=== PATIENT | female | born 1975 | race Two or more races ===

== ENCOUNTER 2019-11-08 00:42 | Emergency (ER) | payer SELFPAY ==
[2019-11-08 00:47] VITALS: BP 118/68; PULSE 77; RESP 22; TEMP 36.8; O2SAT 100
[2019-11-08 01:26] LABS: Basophils Percent Auto 0.3 % (0.2-1.2); Eosinophils Absolute Auto 0.1 K/mm3 (0-0.3); Eosinophils Percent Auto 0.6 % (0-4.4); Hematocrit 25.9 % (37.0-47.0); Hemoglobin 8.4 g/dL (12.0-15.0); Immature Granulocyte Absolute 0.03 K/mm3 (0.00-0.031); Immature Granulocyte Percent A 0.4 % (0-0.5); Lymphocytes Absolute Auto 2.65 K/mm3 (0.9-3.2); Lymphocytes Percent Auto 33.8 % (18.3-44.2); Mean Corpuscular HGB Conc 32.4 g/dl (32-36); Mean Corpuscular Hemoglobin 26.6 pg (26-34); Mean Platelet Volume 10.6 fl (7.4-10.4); Monocytes Absolute Auto 0.7 K/mm3 (0.1-0.6); Monocytes Percent Auto 8.4 % (2.6-8.5); Neutrophils Absolute Auto 4.4 K/mm3 (1.3-6.7); Neutrophils Percent Auto 56.5 % (45.5-73.1); Platelet Count Result 290 k/mm3 (150-375); Red Blood Count 3.16 M/mm3 (4.2-5.4); Red Cell Distribution Width 15.8 % (11.5-14.5); White Blood Count 7.8 K/mm3 (4.5-10.0)
[2019-11-08 01:30] LABS: Prothrombin Time 13.3 Seconds (11.1-14.7)
[2019-11-08 01:35] LABS: Alanine Aminotransferase 18 U/L (4-35); Albumin Level 3.9 g/dL (3.5-5.1); Alkaline Phosphatase 80 U/L (38-126); Aspartate Amino Transferase 22 U/L (14-36); Bilirubin,Total 0.1 mg/dL (0.2-1.3); Blood Urea Nitrogen 15 mg/dL (7-17); Calcium 8.4 mg/dL (8.4-10.2); Carbon Dioxide 22 mmol/L (22-30); Chloride 105 mmol/L (98-107); Estimated Glomerular Filt Rate > 60; Glucose 104 mg/dL (65-105); Potassium 3.5 mmol/L (3.4-5.0); Sodium 135 mmol/L (137-145)
--- NOTE | 2019-11-08 01:35 | ED.FEMALEGU ---
HPI - Female Genitourinary General Chief complaint: Vaginal Bleeding Stated complaint: vaginal bleeding Time Seen by Provider: 11/08/19 00:54 History of Present Illness HPI Narrative: Patient presents to the ED with her daughter for daughter's complaints and then decides to be seen herself. She is [place]. And we used the peer financial counselor for communication. She reports 2 weeks of vaginal bleeding. She has not had this before. She is not on control. She is G2, P2 Ab0. She has no pain with this. She also has a headache which she says is severe that she has had for 2 days. MD elicited complaint: vaginal bleeding Onset (ago): week(s) Location of symptoms: vaginal Severity: moderate Consistency: constant Related Data Allergies Allergy/AdvReac Type Severity Reaction Status Date / Time No Known Allergies Allergy Verified 11/08/19 02:14 Review of Systems Review of Systems: Narrative: CONSTITUTIONAL: Denies fever, chills, or sweats. EYES: Denies visual changes, redness, or discharge. ENT: Denies rhinorrhea, congestion, sore throat, or otalgia. CARDIOVASCULAR: Denies chest pain, palpitations, or edema. RESPIRATORY: Denies cough or dyspnea. GASTROINTESTINAL: Denies abdominal pain, nausea, vomiting, or diarrhea. GENITOURINARY: Denies dysuria or hematuria. She does have vaginal bleeding for 2 weeks. SKIN: Denies rash or itching. MUSCULOSKELETAL: Denies back pain, joint pain, or myalgia. NEUROLOGIC: She has headache, but not numbness, or weakness. . PMFSH Past Medical History Medical History Anemia Menometrorrhagia Vaginal bleeding Surgical History Surgical History (Updated 11/08/19 @ 01:38 by Poly Curtis MD) No pertinent past surgical history Social History Social History (Updated 11/08/19 @ 01:38 by Poly Curtis MD) Smoking status: Never smoker Alcohol intake: never Substance use: never Gender identity (if verbalized by the patient): Female Exam Narrative: Exam Narrative: GENERAL: Well-appearing, well-nourished, and in no acute distress. Short stature. HEAD: Normocephalic, atraumatic. EYES: PERRLA and EOMI. ENT: Nares clear, no rhinorrhea or epistaxis. Mucous membranes moist. NECK: Supple. CHEST: Clear to auscultation. No respiratory distress. HEART: Regular rate and rhythm. No murmur heard. Normal peripheral pulses. ABDOMEN: Soft, nontender, nondistended, normal active bowel sounds. EXTREMITIES: Normal range of motion. No edema. SKIN: Warm, dry, no rash. NEURO: No focal deficits. Alert and oriented x3. PSYCH: Normal mood and affect. : Very slow flow vaginal bleeding no clots. No masses. No tenderness. Const: General: no acute distress and alert Course Reevaluation(s) Reevaluation #1: Patient came to the door of her room and said Go Date: 11/08/19 Time: 02:15 Vital Signs Vital signs: Vital Signs Temperature 98.3 F 11/08/19 00:47 Pulse Rate 77 11/08/19 00:47 Respiratory Rate 22 H 11/08/19 00:47 Blood Pressure 118/68 11/08/19 00:47 Pulse Oximetry 100 11/08/19 00:47 Temperature 98.3 F 11/08/19 01:53 Pulse Rate 74 11/08/19 01:53 Respiratory Rate 19 11/08/19 01:53 Blood Pressure 125/88 11/08/19 01:53 Pulse Oximetry 100 11/08/19 01:53 MDM - Female Genitourinary Medical Records Attestation: I reviewed the patient's medical records. Lab Data Attestation: I reviewed the patient's lab results. Result diagrams: 11/08/19 01:14 11/08/19 01:14 Labs: Lab Results 11/08/19 11/08/19 11/08/19 Range/Units 01:14 01:14 01:14 WBC 7.8 (4.5-10.0) K/mm3 RBC 3.16 L (4.2-5.4) M/mm3 Hgb 8.4 L (12.0-15.0) g/dL Hct 25.9 L (37.0-47.0) % MCV 82.0 (80-100) fl MCH 26.6 (26-34) pg MCHC 32.4 (32-36) g/dl RDW 15.8 H (11.5-14.5) % Plt Count 290 (150-375) k/mm3 MPV 10.6 H (7.4-10.4) fl Immature Gran % (Auto) 0.4 (0-0.5) % N
[2019-11-08] MEDS: KETOROLAC 15 MG/ML VIAL (*BKC) IV PUSH (01:41)
[2019-11-08] MEDS: ACETAMINOPHEN 325 MG TABLET 650 MG PO (01:42)
[2019-11-08 01:53] VITALS: BP 125/88; PULSE 74; RESP 19; TEMP 36.8; O2SAT 100
[2019-11-08 02:21] VITALS: BP 114/85; PULSE 80; RESP 19; TEMP 36.8; O2SAT 100
== END 2019-11-08 02:23 | disposition home or self-care (01) ==
PROVIDERS: Emergency Provider Emergency Medicine
DX: N92.1 Excessive and frequent menstruation with irregular cycle (principal); D64.9 Anemia, unspecified; R51 Headache
CPT/HCPCS: 36415; 80053; 85025; 85610; 96374; 99284; A9270; J1885